=== PATIENT | female | born 1985 | race American Indian/Alaskan Native ===

== ENCOUNTER 2019-01-22 12:47 | Emergency (ER) | payer SELFPAY ==
--- NOTE | 2019-01-22 12:54 | Event Note ---
ED Screening Note ED Screening Note: dysuria lmp 01/14 no concern std bs 124 this AM PMH DM PSH csec Rx novalog jaseva This initial assessment/diagnostic orders/clinical plan/treatment(s) is/are subject to change based on patients health status, clinical progression and re- assessment by fellow clinical providers in the ED. Further treatment and workup at subsequent clinical providers discretion. Patient/guardian urged not to elope from the ED as their condition may be serious if not clinically assessed and managed. Initial orders include: labs urine
[2019-01-22 13:41] LABS: Hematocrit 37.5 % (30.3-42.9); Hemoglobin 12.5 gm/dl (10.1-14.3); Mean Corpuscular HGB Conc 33 % (30-34); Mean Corpuscular Volume 97 fl (79-97); Platelet Count 287 K/mm3 (140-440); Red Blood Count 3.88 M/mm3 (3.65-5.03)
[2019-01-22 13:52] LABS: BUN/Creatinine Ratio 12; Blood Urea Nitrogen 11 mg/dL (7-17); Calcium 8.5 mg/dL (8.4-10.2); Hemolysis Index 13
[2019-01-22] MEDS ORDERED: NACL 0.9% 1000 ML 1,000 ML IV ONE (14:46)
--- NOTE | 2019-01-22 14:51 | Emergency Department Report ---
ED Abdominal Pain HPI - General Chief Complaint: Abdominal Pain Stated Complaint: ABD PAIN/BLOOD IN URINE/NAUSEA/BACK PAIN Time Seen by Provider: 01/22/19 12:53 Source: patient Mode of arrival: Ambulatory Limitations: No Limitations - History of Present Illness Initial Comments: 33-year-old female presents to the emergency dysuria and abdominal pain. She reports she has a lots of blood in her urine. Patient admits to nausea no vomiting reports that she didn't feel warm. Patient is a diabetic type I and she is currently on a sliding scale of Rk REAVES Complaint: abdominal pain, flank pain (right) Onset/Timin -: days(s) Location: R flank Radiation: suprapubic Severity scale (0 -10): 7 Quality: aching, sharp Consistency: constant Improves With: nothing Worsens With: nothing Associated Symptoms: nausea, hematuria. denies: vomiting, diarrhea - Related Data Previous Rx's Medication Instructions Recorded Last Taken Type Fluconazole [Diflucan TAB] 150 mg PO ONCE #1 tablet 01/22/19 Unknown Rx Nitrofurantoin [place]/M-Cryst 100 mg PO Q12HR 10 Days #20 capsule 01/22/19 Unknown Rx [Macrobid CAP] Allergies Allergy/AdvReac Type Severity Reaction Status Date / Time shellfish derived Allergy Hives Verified 01/22/19 12:51 tree nut Allergy Hives Verified 01/22/19 12:51 ED Review of Systems ROS: Stated complaint: ABD PAIN/BLOOD IN URINE/NAUSEA/BACK PAIN Other details as noted in HPI Comment: All other systems reviewed and negative Gastrointestinal: as per HPI, nausea ED Past Medical Hx - Past Medical History Previous Medical History?: Yes Hx Diabetes: Yes - Surgical History Past Surgical History?: Yes Additional Surgical History: C section - Social History Smoking Status: Never Smoker Substance Use Type: None - Medications Home Medications: Home Medications Medication Instructions Recorded Confirmed Last Taken Type Fluconazole [Diflucan TAB] 150 mg PO ONCE #1 tablet 01/22/19 Unknown Rx Nitrofurantoin [place]/M-Cryst 100 mg PO Q12HR 10 Days #20 capsule 01/22/19 Unknown Rx [Macrobid CAP] ED Physical Exam - General Limitations: No Limitations General appearance: alert, in no apparent distress - Head Head exam: Present: atraumatic, normocephalic - Eye Eye exam: Present: normal appearance - Respiratory Respiratory exam: Present: normal lung sounds bilaterally. Absent: respiratory distress - Cardiovascular Cardiovascular Exam: Present: tachycardia - GI/Abdominal GI/Abdominal exam: Present: soft, normal bowel sounds. Absent: tenderness - External exam: Present: normal external exam Speculum exam: Present: vaginal discharge Bi-manual exam: Present: normal bi-manual exam ED Course Vital Signs 01/22/19 01/22/19 01/22/19 12:53 16:02 16:08 Temperature 98.1 F 98.3 F Pulse Rate 111 H 84 Respiratory 16 18 18 Rate Blood Pressure 124/83 Blood Pressure 103/69 [Right] O2 Sat by Pulse 98 100 Oximetry ED Medical Decision Making - Lab Data Result diagrams: 01/22/19 13:08 01/22/19 13:08 - Radiology Data Radiology results: report reviewed Patient: TEREZA HEATH MR#: [id number] : 1985 Acct:[id number] Age/Sex: 33 / F ADM Date: 01/22/19 Loc: ED Attending Dr: Ordering Physician: LAUREL CHAUDHARY Date of Service: 01/22/19 Procedure(s): CT abdomen pelvis w con Accession Number(s): [id number] cc: LAUREL CHAUDHARY CT abdomen pelvis w con INDICATION: abd pain. Hematuria. TECHNIQUE: All CT scans at this location are performed using the following dose modulation technique: Automated exposure control. CONTRAST: Omnipaque 300, 100 cc IV injection. COMPARISON: None available. CT abdomen: The parenchymal organs are unremarkable in appearance. Negative for abdominal mass, fluid collection or inflammation. The bowel is not dilated or thickened. The ap pendix is normal. CT PELVIS: Negative for distal ureteral stone, pelvic fluid collection or inflam mation. The uterus contains an IUD and fibroids. IMPRESSION: 1. Negative for obstruction or localized inflammation. 2. Uterine fibroids. Signer Name: Lance Michael MD Signed: 01/22/2019 6:06 PM Workstation Name: [id number] Transcribed By: ES Dictated By: Lance Michael MD Electronically Authenticated By: Lance Michael MD Signed Date/Time: 01/22/191805 DD/ 01 TD/TT: - Medical Decision Making 33-year-old female presents to the emergency dysuria and abdominal pain. She reports she has a lots of blood in her urine. Patient admits to nausea no vomiting reports that she didn't feel warm. Patient is a diabetic type I and she is currently on a sliding scale of NovoLog and Tarcev Critical care attestation.: If time is entered above; I have spent that time in minutes in the direct care of this critically ill patient, excluding procedure time. ED Disposition Clinical Impression: Hyperglycemia Abdominal pain Qualifiers: Abdominal location: lower abdomen, unspecified Qualified Code(s): R10.30 - Lower abdominal pain, unspecified UTI (urinary tract infection) Qualifiers: Urinary tract infection type: site unspecified Hematuria presence: without hematuria Qualified Code(s): N39.0 - Urinary tract infection, site not specified Disposition: TO HOME OR SELFCARE Is pt being admited?: No Does the pt Need Aspirin: No Condition: Stable Instructions: Urinary Tract Infection in Women (ED), Abdominal Pain (ED) Additional Instructions: Complete antibiotics as prescribed. Take Diflucan which is a anti-yeast medication. Increase her water intake of headaches or diet as tolerated. Prescriptions: Fluconazole [Diflucan TAB] 150 mg PO ONCE #1 tablet Nitrofurantoin [place]/M-Cryst [Macrobid CAP] 100 mg PO Q12HR 10 Days #20 capsule Referrals: PRIMARY CARE, [Primary Care Provider] - 3-5 Days Forms: Work/School Release Form(ED)
[2019-01-22 15:05] LABS: Bilirubin,Urine NEG (Negative); Blood,Urine NEG (Negative); Color,Urine Amber (Yellow); HCG Qualitative,Urine Negative (Negative); Protein,Urine <15 mg/dL mg/dL (Negative); WBC,Urine < 1.0 /HPF (0.0-6.0)
[2019-01-22] MEDS ORDERED: MORPHINE IV ONE (15:40)
[2019-01-22 16:09] VITALS: BP 103/69
[2019-01-22] MEDS ORDERED: HumuLIN R IV ONE (16:46)
--- NOTE | 2019-01-22 18:10 | Cat Scan Report ---
CT abdomen pelvis w con INDICATION: abd pain. Hematuria. TECHNIQUE: All CT scans at this location are performed using the following dose modulation technique: Automated exposure control. CONTRAST: Omnipaque 300, 100 cc IV injection. COMPARISON: None available. CT abdomen: The parenchymal organs are unremarkable in appearance. Negative for abdominal mass, fluid collection or inflammation. The bowel is not dilated or thickened. The appendix is normal. CT PELVIS: Negative for distal ureteral stone, pelvic fluid collection or inflammation. The uterus co ntains an IUD and fibroids. IMPRESSION: 1. Negative for obstruction or localized inflammation. 2. Uterine fibroids. Signer Name: Lance Michael MD Signed: 01/22/2019 6:06 PM Workstation Name: [id number]
== END 2019-01-22 18:59 | disposition home or self-care (01) ==
LOC: ED 12:47
DX: N39.0 Urinary tract infection, site not specified (principal); E11.65 Type 2 diabetes mellitus with hyperglycemia
CPT/HCPCS: 36415; 74177; 80048; 81001; 81025; 82962; 85027; 87086; 87210; 87591; 96361; 96374; 96375; 99285; J2270; J7030; Q9967; J1815